=== PATIENT | female | born 1990 | race Caucasian/White ===

== ENCOUNTER → 2023-11-27 | Day surgery (SDC) | payer BC ==
[~2023-11-27] MED LIST: FAMOTIDINE20 MG PO; LIDOCAINE HCL 2% LOCAL INJ 5 ML SDV VIAL INJ ONE; MAALOX MAXIMUM355 ML PO; METOCLOPRAMIDE HCL 10 MG/2ML VIAL ONE; PREVACID30 MG PO; PROPOFOL IV EMULSION 10 MG/ML 20 ML VIAL ONE; SERTRALINE HCL100 MG PO
[2023-11-27 13:45] VITALS: BP 115/63; PULSE 65; RESP 18; TEMP 97.4; O2SAT 99
== END | disposition home or self-care (01) ==
LOC: OR 10:46
PROVIDERS: ATTEND Internal Medicine Gastroenterology
DX: K29.50 Unspecified chronic gastritis without bleeding (principal); B96.81 Helicobacter pylori [H. pylori] as the cause of diseases classified elsewhere; K20.90 Esophagitis, unspecified without bleeding; K22.89 Other specified disease of esophagus; K44.9 Diaphragmatic hernia without obstruction or gangrene; R19.7 Diarrhea, unspecified; Z71.3 Dietary counseling and surveillance; F43.10 Post-traumatic stress disorder, unspecified; F41.9 Anxiety disorder, unspecified; Z79.899 Other long term (current) drug therapy; Z68.41 Body mass index [BMI] 40.0-44.9, adult; Z80.0 Family history of malignant neoplasm of digestive organs
CPT/HCPCS: 43239; 81025; C9113; J2001; J2704; J2765